=== PATIENT | male | born 1955 | race American Indian/Alaskan Native ===

== ENCOUNTER 2018-06-24 00:26 | Emergency (ER) | payer MEDICARE ==
[2018-06-24 00:33] VITALS: BP 169/97; PULSE 82; RESP 16; TEMP 97.9; O2SAT 98
[2018-06-24] MEDS ORDERED: Multivitamin (MVI) 10 ML, Folic Acid 1 MG, Thiamine 100 MG in Dextrose 5%/0.45% NS 1,00... IV ONE (01:17)
--- NOTE | 2018-06-24 01:39 | ED PDOC ---
HPI: Psych/Substance Abuse Time Seen by Provider: 06/24/18 00:38 Chief Complaint (Nursing): Psychiatric Evaluation Chief Complaint (Provider): Psychiatric Evaluation ED Caveat: Intoxicated (alcohol use) History Per: Patient History/Exam Limitations: intoxication Associated Symptoms: denies: Suicidal Thoughts Additional Complaint(s): 63 years old male with history of alcohol use and dementia brought to ER by EMS for crisis evaluation after patient was found wandering in street. Patient admits to drinking alcohol and reports worsening of dementia. He denies any lange ucinations, suicidal or homicidal ideation. PMD: non provided Past Medical History Reviewed: Historical Data, Nursing Documentation, Vital Signs Vital Signs: Last Vital Signs Temp 97.9 F 06/24/18 00:27 Pulse 82 06/24/18 00:27 Resp 16 06/24/18 00:27 BP 169/97 H 06/24/18 00:27 Pulse Ox 98 06/24/18 00:27 - Medical History PMH: Dementia - Surgical History Surgical History: No Surg Hx - Family History Family History: States: Unknown Family Hx - Social History Current smoker - smoking cessation education provided: No Alcohol: Social Drugs: Denies - Home Medications Home Medications: Ambulatory Orders Medication Instructions Recorded No Known Home Med 03/27/17 - Allergies Allergies/Adverse Reactions: Allergies Allergy/AdvReac Type Severity Reaction Status Date / Time No Known Allergies Allergy Verified 04/06/17 19:45 Review of Systems ROS Statement: Except As Marked, All Systems Reviewed And Found Negative Psych: Negative for: Suicidal ideation (or homicidal), Other (Hallucinations) Physical Exam - Reviewed Nursing Documentation Reviewed: Yes Vital Signs Reviewed: Yes - Physical Exam Appears: Positive for: No Acute Distress Head Exam: Positive for: ATRAUMATIC, NORMOCEPHALIC Skin: Positive for: Normal Color, Warm, Dry Eye Exam: Positive for: Normal appearance, EOMI, PERRL Cardiovascular/Chest: Positive for: Regular Rate, Rhythm. Negative for: Murmur Respiratory: Positive for: Normal Breath Sounds. Negative for: Wheezing Gastrointestinal/Abdominal: Positive for: Normal Exam, Soft. Negative for: Tenderness Back: Positive for: Normal Inspection Extremity: Positive for: Normal ROM. Negative for: Pedal Edema, Swelling Neurologic/Psych: Positive for: Alert, Oriented (x2 (to person and place)) - Laboratory Results Result Diagrams: 06/24/18 02:55 06/24/18 02:55 - ECG O2 Sat by Pulse Oximetry: 98 (RA) Pulse Ox Interpretation: Normal Medical Decision Making Medical Decision Making: Time: 52 Initial Impression: 63 years old male with history of dementia and alcohol use. Initial Plan: --Labs --Crisis evaluation --Dextrose 5% 1,000 ml IV 250 mls/hr 0639 Labs reviewed and show no significant abnormality. Patient requires no further treatment in the ER and stable for discharge. ----- Scribe Attestation: Documented by Lidia Neil, acting as a scribe for Noam Sparrow MD. Provider Scribe Attestation: All medical record entries made by the Scribe were at my direction and personally dictated by me. I have reviewed the chart and agree that the record accurately reflects my personal performance of the history, physical exam, medical decision making, and the department course for this patient. I have also personally directed, reviewed, and agree with the discharge instructions and disposition. Disposition - Clinical Impression Clinical Impression: Dementia - Patient ED Disposition Is Patient to be Admitted: No - Disposition Disposition: Routine/Home Disposition Time: 06:39 Condition: STABLE Instructions: Dementia (DC) Forms: [employer] (Hungarian)
[2018-06-24 03:12] LABS: BASO % 0.8 % (0.0-2.0); EOS % 0.6 % (0.0-4.0); HEMOGLOBIN 12.9 g/dL (12.0-18.0); LYMPH # 1.7 K/uL (1.0-4.3); LYMPH % 37.2 % (20.0-40.0); MEAN CELL VOLUME 87.8 fl (80.0-94.0); MEAN CORPUSCULAR HEMOGLOBIN 29.6 pg (27.0-31.0); MEAN CORPUSCULAR HGB CONC 33.7 g/dL (33.0-37.0); MONO # 0.9 K/uL (0.0-0.8); MONO % 19.4 % (0.0-10.0); NEUT # 1.9 K/uL (1.8-7.0); NRBC % 0.2 % (0.0-0.0); RBC 4.37 Mil/uL (4.40-5.90); RED CELL DISTRIBUTION WIDTH 17.8 % (11.5-14.5); WHITE BLOOD COUNT 4.6 K/uL (4.8-10.8)
[2018-06-24 03:14] LABS: ALT/SGPT 22 U/L (21-72); AST/SGOT 27 U/L (17-59); BLOOD UREA NITROGEN 8 mg/dl (9-20); CALCIUM 10.8 mg/dL (8.4-10.2); GFR NON-AFRICAN AMERICAN > 60
== END 2018-06-24 07:46 | disposition home or self-care (01) ==
LOC: H.ER 00:26
DX: F03.90 Unspecified dementia, unspecified severity, without behavioral disturbance, psychotic disturbance, mood disturbance, and anxiety (principal)
CPT/HCPCS: 80053; 82948; 85025; 96374; 99282; G0480; J3411; J7042